=== PATIENT | female | born 1985 | race Caucasian/White ===

== ENCOUNTER 2021-01-06 20:25 | Emergency (ER) | payer BC ==
[~2021-01-06] VITALS: Ht 167.6 cm; Wt 84.1 kg
[2021-01-06 20:35] VITALS: TEMP 98
[2021-01-06 23:25] VITALS: BP 121/79; PULSE 94
== END 2021-01-06 23:25 | disposition home or self-care (01) ==
LOC: COL.ER 20:25
DX: S31.41XA Laceration without foreign body of vagina and vulva, initial encounter (principal); X58.XXXA Exposure to other specified factors, initial encounter